=== PATIENT | female | born 1985 | race African-American/Black ===

== ENCOUNTER 2018-05-13 02:15 | Emergency (ER) | payer OTHER ==
[~2018-05-13] VITALS: Ht 165.1 cm; Wt 59.4 kg
[2018-05-13 02:21] VITALS: BP 140/93
[2018-05-13 02:48] VITALS: BP 135/90
== END 2018-05-13 02:49 ==
LOC: MED 02:15
DX: Z02.89 Encounter for other administrative examinations (principal); I10 Essential (primary) hypertension
CPT/HCPCS: 99283